=== PATIENT | male | born 1955 | race Caucasian/White ===

== ENCOUNTER 2019-01-12 09:56 | Emergency (ER) | payer OTHER ==
[~2019-01-12] VITALS: Wt 99.8 kg
[~2019-01-12 09:56] MED LIST: ASPIR LOW81 MG PO; ASPIRIN ADULT L81 M1 PO; BENZTROPINE MESY1 MG PO; CALCIUM500 M1 PO; COGENTIN0.5 MG PO; COMPLETE MULTI1 EACH PO; DEPAKOTE500 M1 PO; DEPAKOTE500 MG PO; Depakote ER500 MG PO; LASIX20 MG PO; METFORMIN500 MG PO; NEURONTIN600 MG PO; PRILOSEC20 M1 PO; PROPRANOLOL PO; THERMOTABS 2871 TAB PO; VITAMIN D1000 IU PO; ZESTRIL20 MG PO; ZOLOFT50 MG PO; [UNRECOGNIZED DRUG - OTHER]; [UNRECOGNIZED DRUG - REMARK]
[2019-01-12] MEDS ORDERED: NORCO 5-325 TA1 EACH PO (11:47)
== END 2019-01-12 12:30 | disposition home or self-care (01) ==
LOC: ED 09:56
DX: S32.10XA Unspecified fracture of sacrum, initial encounter for closed fracture (principal); S32.2XXA Fracture of coccyx, initial encounter for closed fracture; Z79.899 Other long term (current) drug therapy; Z79.4 Long term (current) use of insulin; Z88.8 Allergy status to other drugs, medicaments and biological substances; W01.0XXA Fall on same level from slipping, tripping and stumbling without subsequent striking against object, initial encounter; Y93.89 Activity, other specified; Y92.89 Other specified places as the place of occurrence of the external cause; Y99.8 Other external cause status

== ENCOUNTER → 2020-01-21 | Outpatient (CLI) | payer OTHER ==
[~2020-01-21] MED LIST changes: +NORCO 5-325 TA1 EACH PO
== END | disposition home or self-care (01) ==
LOC: US 01-20 08:30
PROVIDERS: ATTEND Nurse Practitioner Family
DX: Z72.0 Tobacco use (principal)

== ENCOUNTER → 2021-02-08 | Outpatient (CLI) | payer OTHER | END | disposition home or self-care (01) | LOC: CARD 14:07 | PROVIDERS: ATTEND Nurse Practitioner Family | DX: I34.0 Nonrheumatic mitral (valve) insufficiency (principal); R01.1 Cardiac murmur, unspecified ==

== ENCOUNTER → 2021-03-15 | Day surgery (SDC) | payer OTHER ==
[~2021-03-15] VITALS: Ht 152.4 cm; Wt 74.8 kg
[2021-03-15 08:45] VITALS: BP 118/75
[2021-03-15 09:56] VITALS: BP 103/76
[2021-03-15 10:05] VITALS: BP 115/71
[2021-03-15 10:30] VITALS: BP 119/60
== END | disposition home or self-care (01) ==
LOC: SDC 03-12 08:45
PROVIDERS: ATTEND Surgery
DX: Z09 Encounter for follow-up examination after completed treatment for conditions other than malignant neoplasm (principal); Z86.010 Personal history of colon polyps; D12.3 Benign neoplasm of transverse colon; D12.8 Benign neoplasm of rectum; I10 Essential (primary) hypertension; E11.9 Type 2 diabetes mellitus without complications; K21.9 Gastro-esophageal reflux disease without esophagitis; Z95.0 Presence of cardiac pacemaker; F60.1 Schizoid personality disorder; Z79.899 Other long term (current) drug therapy; Z20.822 Contact with and (suspected) exposure to COVID-19

== ENCOUNTER 2021-06-01 05:29 | Emergency (ER) | payer OTHER ==
[~2021-06-01] VITALS: Ht 182.9 cm; Wt 93.9 kg
[2021-06-01 06:06] LABS: BILIRUBIN Negative (Negative); BLOOD Negative (Negative); CLARITY Clear (Clear); COLOR Dark Yellow (Yellow); GLUCOSE Negative (Negative); KETONE 2+ (Negative); LEUKO ESTERASE Negative (Negative); NITRITE Negative (Negative)
[2021-06-01 06:18] LABS: URINE AMPHETAMINES < 1000 (1000ng/ml); URINE BARBITURATES < 200 (200ng/ml); URINE BENZODIAZEPINES < 200 (200ng/ml); URINE METHADONE < 300 (300ng/ml); URINE OPIATES < 300 (300ng/ml)
[2021-06-01 06:29] LABS: URINE CANNABINOIDS (THC) > 50 (50ng/ml); URINE COCAINE < 300 (300ng/ml)
[2021-06-01] MEDS ORDERED: NICORETTE GUM4 MG PO (06:29)
[2021-06-01 06:30] LABS: BACTERIA 2+; FINE GRANULAR CAST TNTC; HYALINE CAST TNTC; URINE PHENCYCLIDINE < 25 (25ng/ml)
[2021-06-01] MEDS ORDERED: PROAIR HFA8.5 GM INH (06:31)
[2021-06-01] MEDS ORDERED: PERPHENAZINE4 M1 PO (06:37)
[2021-06-01] MEDS ORDERED: TRILAFON16 MG PO (06:39)
[2021-06-01 06:40] LABS: HEMATOCRIT 37.6 % (42.0-52.0); MEAN CELL VOLUME 85.5 fl (80.0-94.0); MEAN CORPUSCULAR HGB 31.1 pg (27.0-31.0); MEAN CORPUSCULAR HGB CONC 36.4 g/dl (33.0-37.0); MEAN PLATELET VOLUME 11.5 fl (9.6-12.3); PLATELET COUNT AUTOMATED 248 10*3/uL (130-400); WHITE BLOOD COUNT 12.5 10*3/uL (4.8-10.8)
[2021-06-01] MEDS ORDERED: D3-200050 MCG PO (06:40)
[2021-06-01] MEDS ORDERED: ARIPIPRAZOLE2 MG PO (06:43)
[2021-06-01 06:45] LABS: ALBUMIN 3.5 gm/dl (3.1-4.5); ALKALINE PHOSPHATASE 54 U/L (45-117); BUN 19 mg/dl (7-24); CHLORIDE 90 mmol/L (98-107); CPK 383 U/L (39-308); CREATININE 0.69 mg/dL (0.70-1.30); POTASSIUM 3.6 mmol/L (3.5-5.1); SGOT/AST 28 IU/L (3-35); SGPT/ALT 23 U/L (12-78); SODIUM 125 mmol/L (136-145); TOTAL PROTEIN 7.8 gm/dL (6.4-8.2)
[2021-06-01 06:46] LABS: ACETAMINOPHEN (TYLENOL) < 5.0 ug/ml (10-30); ETHYL ALCOHOL < 3.0 mg/dl (<3)
[2021-06-01 06:49] LABS: MANUAL DIFF REFLEX YES
[2021-06-01 07:25] LABS: BASOPHILS 1 % (0-1); TOTAL CELLS COUNTED 100 #CELLS
[2021-06-01 07:26] LABS: PLATELET SUFFICIENCY NORMAL (NORMAL)
== END 2021-06-02 02:08 ==
LOC: ED 05:29
PROVIDERS: Emergency Medicine
DX: F23 Brief psychotic disorder (principal); Z20.822 Contact with and (suspected) exposure to COVID-19; I10 Essential (primary) hypertension; E11.9 Type 2 diabetes mellitus without complications; F17.200 Nicotine dependence, unspecified, uncomplicated; Z88.8 Allergy status to other drugs, medicaments and biological substances; Z79.899 Other long term (current) drug therapy; Z79.82 Long term (current) use of aspirin